=== PATIENT | male | born 1990 | race African-American/Black ===

== ENCOUNTER 2019-03-07 16:01 | Inpatient (IN) | payer OTHER ==
[2019-03-07 16:34] LABS: #Basophils 0.1 thou/uL (0.0-0.2); #Lymphocytes 1.3 thou/uL (1.20-3.40); #Monocytes 0.3 thou/uL (0.11-0.59); #Neutrophils 3.3 thou/uL (1.40-6.50); %Basophils 1.1 % (0.0-1.0); %Eosinophils 0.9 % (0.0-10.0); %Lymphocytes 25.9 % (21.0-51.0); %Monocytes 6.3 % (0.0-10.0); %Neutrophils 65.9 % (42.0-75.0); Hemoglobin 15.4 g/dL (14.0-18.0); Mean Corpuscular HGB CONC 34.3 g/dL (32.0-36.0); Mean Corpuscular Hemoglobin 28.6 pg (27.0-31.0); Mean Corpuscular Volume 83.3 fL (78.0-98.0); Mean Platelet Volume 10.8 fL (7.4-10.4); Platelet Count 171 thou/uL (130-400); RBC Distribution Width 11.4 % (11.5-14.5); Red Blood Cell (RBC) Count 5.39 mill/uL (4.70-6.10)
[2019-03-07 16:51] LABS: Bilirubin Negative (Negative); Blood, Urine Negative (Negative); Clarity CLEAR (Clear); Glucose, Urine (Dipstick) >=1000 mg/dL (Negative); Leukocyte Negative (Negative); Nitrite Negative (Negative); Protein, Urine (Dipstick) Negative (Neg-Trace); Specific Gravity, Urine 1.029 (1.002-1.036); Urobilinogen 0.2 mg/dL (0.2-1.0); pH, Urine 5.5 (5.0-9.0)
[2019-03-07 16:58] LABS: ALT (SGPT) 46 U/L (8-55); AST (SGOT) 25 U/L (5-34); Albumin 4.6 g/dL (3.5-5.0); Alkaline Phosphatase 151 U/L (40-150); Anion Gap 20 mmol/L (10-20); BUN (Urea Nitrogen) 17 mg/dL (8.9-20.6); Bilirubin, Total 0.6 mg/dL (0.2-1.2); CK (CPK) 433 U/L (30-200); Calc. Creatinine Clearance 0 mL/min (70-130); Calcium 10.2 mg/dL (7.8-10.44); Carbon Dioxide 21 mmol/L (22-29); Chloride 89 mmol/L (98-107); Estimated GFR-MDRD 42; Globulin 3.9 g/dL (2.4-3.5); Lipase 46 U/L (8-78); Magnesium 2.3 mg/dL (1.6-2.6); Phosphorus 3.9 mg/dL (2.3-4.7); Potassium 4.6 mmol/L (3.5-5.1); Protein, Total 8.5 g/dL (6.0-8.3); Sodium 125 mmol/L (136-145)
[2019-03-07 17:08] LABS: Glucose 810 mg/dL (70-105)
[2019-03-07 17:19] LABS: Base Excess-Venous -5.5 mmol/L (-2.0 to 3.0); Bicarbonate (HCO3v) 19.2 mmol/L (22.0-28.0); CO2 Tension (PvCO2) 34.7 mmHg (40.0-50.0); Calcium, Ionized 1.15 mmol/L (See Comments:); Chloride 98 mmol/L (98-107); Hemoglobin - Calc 16.3 g/dL (14.0-18.0); O2 Tension (PvO2) 82.1 mmHg (35.0-45.0); Potassium 4.3 mmol/L (3.5-5.1); Sodium 125 mmol/L (138-145); T. Carbon Dioxide 20.3 mmol/L (22.0-28.0); pH (Venous) 7.351 (7.320-7.430); vO2 Saturation-calc 95.6 % (60.0-85.0)
[2019-03-07] MEDS ORDERED: HUMULIN R 100 UNITS in Sodium Chloride 0.9% 99 ML IVPB SCH (17:30)
[2019-03-07] MEDS ORDERED: Insulin Regular 300 UNITS/3 ML VIAL ONE (17:53)
[2019-03-07] MEDS ORDERED: D5 1/2 NS w/20 mEq KCL 1,000 ML IV PRN (18:53)
[2019-03-07] MEDS ORDERED: NS 0.9% w/ 20 MEQ KCL 1,000 ML IV PRN (18:53)
[2019-03-07] MEDS ORDERED: CCU Electrolyte Replacement 1 EACH IVPB SCH (18:53)
[2019-03-07] MEDS ORDERED: Acetaminophen 325 MG TAB PO PRN ×2 (18:53→20:21)
[2019-03-07] MEDS ORDERED: Dextrose 5 %-0.45 % NaCl 1,000 ML IV PRN (18:53)
[2019-03-07] MEDS ORDERED: Ondansetron PF 4 MG/2 ML Vial IVP PRN ×2 (18:53→20:21)
[2019-03-07] MEDS ORDERED: Sodium Chloride 0.9% 1,000 ML IV PRN ×4 (18:53)
[2019-03-07] MEDS ORDERED: HUMULIN R 100 UNITS in Sodium Chloride 0.9% 100 ML IVPB SCH (19:00)
[2019-03-07] MEDS ORDERED: Potassium Phosphate 15 MMOL in Sodium Chloride 0.9% 250 ML 250 ML IV PRN (19:19)
[2019-03-07] MEDS ORDERED: Potassium Phosphate 12 MMOL in Sodium Chloride 0.9% 250 ML 250 ML IV PRN (19:19)
[2019-03-07] MEDS ORDERED: Potassium Chloride 40 MEQ in Sodium Chloride 0.9% 250 ML 250 ML IVPB PRN (19:19)
[2019-03-07] MEDS ORDERED: Potassium Chloride 20 MEQ TAB PO PRN (19:19)
[2019-03-07] MEDS ORDERED: Magnesium 2 GM/50 ML 2 GM in Premix Bag 1 BAG IVPB PRN (19:19)
[2019-03-07] MEDS ORDERED: Potassium Phosphate 9 MMOL in Sodium Chloride 0.9% 100 ML IVPB PRN (19:19)
[2019-03-07] MEDS ORDERED: Magnesium Oxide 400 MG TAB PO PRN ×2 (19:19)
[2019-03-07] MEDS ORDERED: Potassium Chloride 40 MEQ in Premix Bag 1 BAG IVPB PRN (19:19)
[2019-03-07] MEDS ORDERED: PHOS-NAK 1 PKT PACK PO PRN ×2 (19:19)
[2019-03-07] MEDS ORDERED: CCU ELECTROLYTE REPLACEMENT PROTOCOL FS PRN (19:19)
[2019-03-07 19:38] LABS: Anion Gap 20 mmol/L (10-20); BUN (Urea Nitrogen) 16 mg/dL (8.9-20.6); Calc. Creatinine Clearance 0 mL/min (70-130); Calcium 9.6 mg/dL (7.8-10.44); Carbon Dioxide 19 mmol/L (22-29); Chloride 97 mmol/L (98-107); Estimated GFR-MDRD 51; Glucose 502 mg/dL (70-105); Sodium 132 mmol/L (136-145)
--- NOTE | 2019-03-07 19:53 | HP ---
Primary Care Provider: None CHIEF COMPLAINT: Elevated blood sugars. HISTORY OF PRESENT ILLNESS: This is a 29-year-old male with no past medical history, presents to the emergency room with complaint of elevated blood sugars. 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 Two weeks, he noticed changes with his vision (specifically with distance and blurring of his vision), polyuria, polydipsia, weight loss of 10 to 12 pounds, decreased energy, and some nausea. In addition, he has had some muscle cramps that are waking him up at night. 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 The patient had not been previously evaluated for this, denies any precipitants or relieving factors. He also denies any fevers, chills , abdominal pain, or diarrhea. In the emergency room, the patient found to have a blood sugar of 800, and an acute kidney injury, and anion gap of 15, and hospitalist called for admission. He has received 2 L of normal saline, 10 units of IV insulin, and started on a drip at 6 units/hour. ALLERGIES: NO KNOWN DRUG ALLERGIES. CURRENT MEDICATIONS: None. PAST MEDICAL HISTORY: Denies. PAST SURGICAL HISTORY: Right patellar reconstruction. SOCIAL HISTORY: Works as a commercial plumber, uses alcohol monthly, denies any tobacco or recreational drug use, and lives alone. His mom, Kanchan Pan is his surrogate decision maker, her phone is #[phone]. FAMILY HISTORY: Significant for mom with diabetes and a dad who of heart disease. REVIEW OF SYSTEMS: As noted above - positive for polyuria, polydipsia, weight loss, fatigue, muscle cramps. Negative for chest pain, difficulty breathing, nausea, vomiting, abdominal pain. All remaining review of systems were reviewed and negative. PHYSICAL EXAMINATION: VITAL SIGNS: Blood pressure 143/83, pulse 80, respirations 18, temperature 97.9 , saturations 97% on room air. GENERAL: Awake, alert, responsive, in no apparent distress. Able to speak in full sentences. HEENT: Tympanic membranes translucent. Oral mucosa is pink and dry. Pupils are equal and round. NECK: Supple, nontender. LYMPHATICS: No palpable cervical or supraclavicular lymphadenopathy. LUNGS: Clear to auscultation bilateral. HEART: Normal S1, S2. Regular rate and rhythm. No audible murmurs. ABDOMEN: Soft. Present bowel sounds. Nontender, nondistended. EXTREMITIES: No clubbing, cyanosis, or edema. SKIN: No visible rashes. NEUROLOGIC: No focal deficits. PSYCHIATRIC: Euthymic. Answers questions appropriately and appears stated age. VASCULAR: 2+ dorsalis pedis pulses. LABORATORY DATA: Today CBC; WBC 5.0, hemoglobin 15.4, hematocrit 44.9, platelets 171. Venous Blood gas shows a pCO2 of 34.7 and a pH of 7.35. Renal panel; 125, 4.6, 89, 21, 17, 2.27, 810. The corrected sodium is 142. Calcium 10.2. LFTs; alkaline phosphatase 151, total protein 8.5, albumin 4.6, AST 25, ALT 46, T bilirubin 0.6. Phos 3.9, mag 2.3. Lipase is 46. Urinalysis is greater than a 1000 glucose, 40 ketones. Toxicology; beta-hydroxybutyrate 4.13, elevated. No imaging. IMPRESSION: 1. Diabetic ketoacidosis with a new diagnosis of diabetes mellitus. 2. Acute kidney injury secondary to above. 3. Mildly elevated blood pressure, uncertain of the patient's baseline. PLAN: 1. We will check an anti-islet cell antibody to help with discerning type 1 versus type 2. 2. Admission to the ICU. 3. DKA protocol, monitoring both his renal function, electrolytes, and anion gap. When patient is advanced to subcutaneous insulin, he will need diabetic education and teaching of both insulin and fingersticks. 4. Continuing IV fluids, monitoring renal function. May need Nephrology consult if this does not improve. 5. DVT prophylaxis with SCDs. 6. GI prophylaxis not indicated. The patient will be written for a carb consistent diet. 7. Code status is full and surrogate decision maker is mom as noted above. 8. The patient is at high risk given current presentation. Reviewed plan of care with the patient, who demonstrates understanding. No questions or further needs at the end of evaluation. Job ID: [id number] [facility]
[2019-03-07 20:16] LABS: ALT (SGPT) 43 U/L (8-55); AST (SGOT) 28 U/L (5-34); Albumin 4.4 g/dL (3.5-5.0); Alkaline Phosphatase 140 U/L (40-150); Bilirubin, Direct 0.1 mg/dL (0.1-0.3); Bilirubin, Total 0.4 mg/dL (0.2-1.2); Protein, Total 8.4 g/dL (6.0-8.3)
[2019-03-07] MEDS ORDERED: HYDROcodone/Acetaminophen 5/325 mg Tablet PO PRN ×2 (20:21)
[2019-03-07] MEDS ORDERED: Ondansetron ODT 4 MG TAB SL PRN (20:21)
[2019-03-07] MEDS: NS 0.9% w/ 20 MEQ KCL 1,000 ML IV PRN ×2 (20:41→22:00)
[2019-03-07 20:46] VITALS: BMI 36.9
[2019-03-08 00:09] LABS: Anion Gap 14 mmol/L (10-20); BUN (Urea Nitrogen) 15 mg/dL (8.9-20.6); Calc. Creatinine Clearance 131 mL/min (70-130); Carbon Dioxide 21 mmol/L (22-29); Chloride 102 mmol/L (98-107); Estimated GFR-MDRD 65; Glucose 410 mg/dL (70-105); Potassium 3.8 mmol/L (3.5-5.1); Sodium 133 mmol/L (136-145)
[2019-03-08 06:52] LABS: Anion Gap 10 mmol/L (10-20); BUN (Urea Nitrogen) 12 mg/dL (8.9-20.6); Calc. Creatinine Clearance 178 mL/min (70-130); Calcium 8.6 mg/dL (7.8-10.44); Carbon Dioxide 23 mmol/L (22-29); Chloride 108 mmol/L (98-107); Estimated GFR-MDRD Greater than 90; Glucose 191 mg/dL (70-105); Potassium 3.3 mmol/L (3.5-5.1); Sodium 138 mmol/L (136-145)
[2019-03-08] MEDS ORDERED: Dextrose 50% Abboject 50 ML SYRINGE SLOW IVP PRN (08:35)
[2019-03-08] MEDS ORDERED: Dextrose 5% in Water 1,000 ML IV PRN (08:35)
--- NOTE | 2019-03-08 08:52 | PDOC.PN ---
- Subjective Encounter Start Date: 03/08/19 (f/u DM) Encounter Start Time: 08:46 Subjective: Pt without complaints, denies any sx. Did not wake up to void last night. -: does note a rash around the glans penis - Objective Resuscitation Status - Order Detail: 03/07/19 18:53 Resuscitation Status Routine Resuscitation Status: FULL: Full Resuscitation Vital Signs & Weight: Vital Signs (12 hours) Temp Pulse Ox 03/08/19 08:00 99 03/08/19 07:33 97.6 F 03/08/19 04:25 98 03/08/19 03:47 97.0 F L 03/08/19 00:00 100 03/07/19 23:37 98.1 F Weight Weight 293 lb Most Recent Monitor Data Heart Rate from ECG 80 NIBP 102/53 NIBP BP-Mean 69 Respiration from ECG 22 I&O: 03/07/19 03/08/19 03/09/19 06:59 06:59 06:59 Intake Total 5345 618 Output Total 1250 300 Balance 4095 318 Result Diagrams: 03/07/19 16:27 03/08/19 06:13 Additional Labs: Accuchecks 03/08/19 03/08/19 03/08/19 08:09 07:09 05:54 POC Glucose 260 H 213 H 190 H 03/08/19 03/08/19 03/08/19 05:03 04:07 03:02 POC Glucose 159 H 208 H 235 H 03/08/19 03/08/19 03/08/19 01:56 01:00 00:08 POC Glucose 272 H 381 H 368 H 03/07/19 03/07/19 03/07/19 23:00 21:54 21:06 POC Glucose 421 H 467 H 472 H 03/07/19 20:23 POC Glucose 546 H EKG Reviewed by me: Yes (sinus 80's) Phys Exam - Physical Examination Constitutional: NAD Respiratory: no wheezing, no rales, no rhonchi, clear to auscultation bilateral Cardiovascular: RRR, no significant murmur Gastrointestinal: soft, non-tender, no distention, positive bowel sounds Deviation from normal: mild erythema/edema around the glans penis -: exam performed with Nithya/RN Dx/Plan (1) Diabetes mellitus Code(s): E11.9 - TYPE 2 DIABETES MELLITUS WITHOUT COMPLICATIONS Status: Acute Qualifiers: Diabetes mellitus type: other specified (including LIV) Diabetes mellitus complication status: with hyperglycemia (2) ANA (acute kidney injury) Code(s): N17.9 - ACUTE KIDNEY FAILURE, UNSPECIFIED Status: Resolved (3) Balanitis Code(s): N48.1 - BALANITIS Status: Acute (4) DKA (diabetic ketoacidoses) Code(s): E11.10 - TYPE 2 DIABETES MELLITUS WITH KETOACIDOSIS WITHOUT COMA Status: Resolved Qualifiers: Diabetes mellitus type: other specified (including LIV) (5) Hypokalemia Code(s): E87.6 - HYPOKALEMIA Status: Acute - Plan * DKA resolved, the mild anion gap is closed and blood sugars are now in the 200 's while on D5 * start lantus 20 units (reviewed log and pt has required 98 units of insulin gtt) * moderate insulin sliding scale * diabetes 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 * replace potassium with one dose oral * * anticipate d/c to home in the next 1-2 days based on stability of blood sugars and ability to obtain medications for outpatient use * * dvt prophy - ambulatory * gi prophy - not indicated * code status full * * reviewed plan of care with patient, no questions or further needs at end of eval.
[2019-03-08] MEDS ORDERED: Potassium Chloride 20 MEQ TAB PO SCH (09:00)
[2019-03-08] MEDS ORDERED: Insulin Glargine 20 UNITS in Pre-Filled Syringe 1 EACH SC SCH ×2 (09:00→21:30)
[2019-03-08] MEDS: Clotrimazole 1 % Cream 30 GM TUBE TOP SCH ×2 (09:48→20:53)
[2019-03-08] MEDS: HumaLOG 300 UNITS/3 ML VIAL SC PRN ×3 (12:22→21:32)
--- NOTE | 2019-03-08 21:16 | PDOC.EVN ---
Event Note - Event Note Event Note: blood sugars increasing throughout the day - to 400's with dinner. Will add an additional 20 units of lantus now, and monitor. continue to titrate to effect.
[2019-03-09] MEDS: HumaLOG 300 UNITS/3 ML VIAL SC PRN ×3 (04:53→21:31)
[2019-03-09 06:55] LABS: Anion Gap 13 mmol/L (10-20); BUN (Urea Nitrogen) 8 mg/dL (8.9-20.6); Calc. Creatinine Clearance 177 mL/min (70-130); Calcium 9.1 mg/dL (7.8-10.44); Carbon Dioxide 21 mmol/L (22-29); Chloride 104 mmol/L (98-107); Estimated GFR-MDRD 90; Glucose 326 mg/dL (70-105); Potassium 3.4 mmol/L (3.5-5.1); Sodium 135 mmol/L (136-145)
[2019-03-09] MEDS: HumaLOG 300 UNITS/3 ML VIAL SC SCH ×3 (08:33→17:47)
[2019-03-09] MEDS: Clotrimazole 1 % Cream 30 GM TUBE TOP SCH ×2 (08:34→20:32)
[2019-03-09] MEDS ORDERED: Insulin Glargine 25 UNITS in Pre-Filled Syringe 1 EACH SC SCH ×2 (09:00→21:00)
[2019-03-09] MEDS ORDERED: metFORMIN 500 MG TAB PO SCH ×2 (09:56→10:00)
--- NOTE | 2019-03-09 15:59 | PDOC.PN ---
- Subjective Encounter Start Date: 03/09/19 (f/u DM) Encounter Start Time: 09:30 Subjective: Pt without complaints today, states his vision may be a little bit better. -: denies any pain/n/v - Objective Resuscitation Status - Order Detail: 03/07/19 18:53 Resuscitation Status Routine Resuscitation Status: FULL: Full Resuscitation Vital Signs & Weight: Vital Signs (12 hours) Temp Pulse Resp BP Pulse Ox 03/09/19 12:00 98 F 79 18 110/70 100 03/09/19 08:00 98.1 F 73 18 125/69 99 03/09/19 04:42 97.9 F 62 16 106/64 98 Weight Weight 293 lb Most Recent Monitor Data Heart Rate from ECG 74 NIBP 126/66 NIBP BP-Mean 86 Respiration from ECG 21 SpO2 99 I&O: 03/08/19 03/09/19 03/10/19 06:59 06:59 06:59 Intake Total 5345 1758 Output Total 1250 300 Balance 4095 1458 Result Diagrams: 03/07/19 16:27 03/09/19 06:11 Additional Labs: Accuchecks 03/09/19 03/09/19 03/09/19 11:10 08:34 04:38 POC Glucose 311 H 289 H 320 H 03/08/19 03/08/19 21:02 16:25 POC Glucose 451 H 449 H Phys Exam - Physical Examination Constitutional: NAD Respiratory: no wheezing, no rales, no rhonchi, clear to auscultation bilateral Cardiovascular: RRR, no significant murmur Gastrointestinal: soft, non-tender, no distention, positive bowel sounds Musculoskeletal: no edema Neurological: non-focal, moves all 4 limbs Psychiatric: normal affect Dx/Plan (1) Diabetes mellitus Code(s): E11.9 - TYPE 2 DIABETES MELLITUS WITHOUT COMPLICATIONS Status: Acute Qualifiers: Diabetes mellitus type: other specified (including LIV) Diabetes mellitus complication status: with hyperglycemia (2) ANA (acute kidney injury) Code(s): N17.9 - ACUTE KIDNEY FAILURE, UNSPECIFIED Status: Resolved (3) Balanitis Code(s): N48.1 - BALANITIS Status: Acute (4) DKA (diabetic ketoacidoses) Code(s): E11.10 - TYPE 2 DIABETES MELLITUS WITH KETOACIDOSIS WITHOUT COMA Status: Resolved Qualifiers: Diabetes mellitus type: other specified (including LIV) (5) Hypokalemia Code(s): E87.6 - HYPOKALEMIA Status: Acute - Plan * * Blood sugars in the 200-300's today which is improved. Increase the lantus to 25 units twice daily and monitor. * DM teaching today by RN - finger stick glucose, insulin injections, sliding scale, diet considerations * * Islet cell Ab test pending * Presentation more c/w type 2 presentation - initiate low dose metformin. * * ANA resolved * * clotrimazole topically for balanitis * * replace potassium * * anticipate discharge tomorrow - Case management assistance will be essential - to determine if pt's insurance covers medication, what is on his formulary so that he can continue treatment. Pt will also need to arrange a Primary Care Physician. Until all of this is in place, he is not safe for discharge. * * dvt prophy - ambulatory * gi prophy - not indicated * code status full * * reviewed plan of care with patient, no questions or further needs at end of eval. * Addendum at 20:00 - blood sugars today improved and range from 259-326. Because of this, will change lantus dosing to once daily in the morning starting tomorrow at 45 units. This dose will need to be re-evaluated based on blood sugars and tolerance. Will also need to ensure that pt has access to the medication after discharge.
[2019-03-09] MEDS ORDERED: Potassium Chloride 20 MEQ TAB PO SCH (16:00)
[2019-03-09] MEDS ORDERED: Insulin Glargine 20 UNITS in Pre-Filled Syringe 1 EACH SC SCH (21:00)
[2019-03-10 06:47] LABS: Anion Gap 12 mmol/L (10-20); BUN (Urea Nitrogen) 11 mg/dL (8.9-20.6); Calc. Creatinine Clearance 174 mL/min (70-130); Calcium 8.9 mg/dL (7.8-10.44); Carbon Dioxide 22 mmol/L (22-29); Chloride 103 mmol/L (98-107); Estimated GFR-MDRD 88; Glucose 352 mg/dL (70-105); Potassium 3.4 mmol/L (3.5-5.1); Sodium 134 mmol/L (136-145)
[2019-03-10] MEDS ORDERED: metFORMIN 500 MG TAB PO SCH ×2 (08:00→17:00)
[2019-03-10 08:07] VITALS: TEMP 98.1
[2019-03-10 08:09] VITALS: BP 115/72
[2019-03-10] MEDS: Clotrimazole 1 % Cream 30 GM TUBE TOP SCH (08:51)
[2019-03-10] MEDS: HumaLOG 300 UNITS/3 ML VIAL SC SCH ×2 (08:51→12:16)
[2019-03-10] MEDS ORDERED: Insulin Glargine 45 UNITS in Pre-Filled Syringe 1 EACH SC SCH (09:00)
--- NOTE | 2019-03-10 11:47 | PDOC.PN ---
- Subjective Encounter Start Date: 03/10/19 Encounter Start Time: 13:20 Subjective: Patient feeling much better. Feels confident in taking the insulins. No -: complaints. - Objective Resuscitation Status - Order Detail: 03/07/19 18:53 Resuscitation Status Routine Resuscitation Status: FULL: Full Resuscitation MAR Reviewed: Yes Vital Signs & Weight: Vital Signs (12 hours) Temp Pulse Resp BP Pulse Ox 03/10/19 08:00 98.1 F 76 20 115/72 03/10/19 05:26 98.3 F 86 18 120/67 96 Weight Weight 293 lb Most Recent Monitor Data Heart Rate from ECG 74 NIBP 126/66 NIBP BP-Mean 86 Respiration from ECG 21 SpO2 99 I&O: 03/09/19 03/10/19 03/11/19 06:59 06:59 06:59 Intake Total 1758 500 Output Total 300 Balance 1458 500 Result Diagrams: 03/07/19 16:27 03/10/19 05:04 Additional Labs: Accuchecks 03/10/19 03/09/19 03/09/19 05:24 21:12 16:47 POC Glucose 313 H 363 H 259 H 03/09/19 03/07/19 03/07/19 11:10 18:53 16:23 POC Glucose 311 H Greater than 550 H* Greater than 550 H* Phys Exam - Physical Examination Constitutional: NAD Obese HEENT: moist MMs Respiratory: no wheezing, no rales, no rhonchi Cardiovascular: RRR, no significant murmur Gastrointestinal: soft, positive bowel sounds Musculoskeletal: no edema Neurological: non-focal, moves all 4 limbs Psychiatric: normal affect, A&O x 3 Dx/Plan (1) Diabetes mellitus type 2 in obese Code(s): E11.69 - TYPE 2 DIABETES MELLITUS WITH OTHER SPECIFIED COMPLICATION; E66.9 - OBESITY, UNSPECIFIED Status: Acute Comment: Patient with no significant acidosis on presentation and blood sugars in 800s, appears to be type 2 DM, starting Metformin and Lantus. Blood sugars now in the 300s. Appropriate for continued outpatient titration. (2) ANA (acute kidney injury) Code(s): N17.9 - ACUTE KIDNEY FAILURE, UNSPECIFIED Status: Resolved (3) Balanitis Code(s): N48.1 - BALANITIS Status: Acute Comment: on clotrimazole (4) Hypokalemia Code(s): E87.6 - HYPOKALEMIA Status: Acute Comment: improved, giving another oral replacement dose - Plan cont current plan of care, respiratory therapy patient can go home today, f/u with PCP next week -: Will d/c on Humulin 75/25 for cost reasons. * . - Discharge Day Encounter end time: 13:30
[2019-03-10] MEDS: HumaLOG 300 UNITS/3 ML VIAL SC PRN (12:17)
[2019-03-10] MEDS ORDERED: Potassium Chloride 20 MEQ TAB PO SCH (12:30)
--- NOTE | 2019-03-11 11:33 | DIS ---
DATE OF ADMISSION: 03/07/2019 DATE OF DISCHARGE: 03/10/2019 PRIMARY CARE PHYSICIAN: None. REASON FOR ADMISSION: Hyperglycemia. DIAGNOSES AT DISCHARGE: 1. Diabetes mellitus type 2 and obesity, insulin dependent. 2. Acute kidney injury, resolved. 3. Balanitis secondary to #1. 4. Hypokalemia, improved. PROCEDURES: None. CONSULTATIONS: None. 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 Two weeks ago, he noticed changes in his vision, then polyuria, polydipsia, and weight loss. He went to the emergency room, found to have blood sugars in the 800s and elevated creatinine. He did have some anion gap, but not bad acidosis. The patient received IV insulin, IV fluids, and had improvement in his blood sugars. He was started on long-acting insulin. The blood sugars came down in the 200 to 300s and he was asymptomatic. The patient was given diabetic education about diet and how to take his insulins and he felt comfortable. With this, he is being discharged management discharged home. FOLLOWUP: Followup to establish primary care physician in 1 week [facility]. Contact information given. ACTIVITY: Regular exercise including weight and cardio training. Glucose judge glucometer prescription given. DISCHARGE MEDICATIONS: 1. Humulin 70/30 of 25 units subcu twice a day, 2 vials dispense. 2. Clotrimazole 1% cream applied topically twice a day, one to be dispensed. 3. Metformin 500 mg twice a day, 60 tablets dispensed. Job ID: [id number]
== END 2019-03-10 15:05 | disposition home or self-care (01) | DRG 638 ==
LOC: ERS 16:01 → IMCU/EMU 20:18 → T4-B 03-08 10:25
PROVIDERS: ADMIT Family Medicine; ATTEND Family Medicine
DX: E11.10 Type 2 diabetes mellitus with ketoacidosis without coma (principal); N17.9 Acute kidney failure, unspecified; N48.1 Balanitis; E87.6 Hypokalemia; E11.69 Type 2 diabetes mellitus with other specified complication; E66.9 Obesity, unspecified; Z68.37 Body mass index [BMI] 37.0-37.9, adult
CPT/HCPCS: 36415; 36416; 80048; 80053; 81003; 82010; 82330; 82550; 82803; 83690; 83735; 83930; 84100; 85025; 86341; 96361; 96365; 96366; 96376; J1815; J1825; J3480; J3490